=== PATIENT | male | born 1960 | race Caucasian/White ===

== ENCOUNTER 2017-03-15 16:47 | Inpatient (IN) | payer OTHER ==
[~2017-03-15] VITALS: Ht 182.9 cm; Wt 90.7 kg
[2017-03-15] MEDS ORDERED: MIRALAX 17 GM POWD.PACK PO PRN (17:30)
[2017-03-15] MEDS ORDERED: ONDANSETRON ODT 4 MG TAB.RAPDIS SL PRN (17:30)
[2017-03-15] MEDS ORDERED: MAGNESIUM HYDROXIDE 30 ML LIQUID UDC PO PRN (17:30)
[2017-03-15] MEDS ORDERED: ACETAMINOPHEN 325 MG TABLET PO PRN (17:30)
[2017-03-15] MEDS ORDERED: LORAZEPAM 1 MG TABLET PO PRN ×2 (17:30)
[2017-03-15] MEDS ORDERED: CLONIDINE HCL 0.1 MG TABLET PO PRN (17:30)
[2017-03-15] MEDS ORDERED: IBUPROFEN 600 MG TABLET PO PRN (17:30)
[2017-03-15] MEDS ORDERED: MAG HYDROX/AL HYDROX/SIMETH 30 ML LIQUID UDC PO PRN (17:30)
[2017-03-15] MEDS ORDERED: DICYCLOMINE HCL 20 MG TABLET PO PRN (17:30)
[2017-03-15] MEDS ORDERED: diphenhydrAMINE 50 MG CAPSULE PO PRN (17:30)
[2017-03-15] MEDS ORDERED: ONDANSETRON 4 MG/2 ML VIAL IM PRN (17:30)
[2017-03-15] MEDS ORDERED: LOPERAMIDE HCL 2 MG CAPSULE PO PRN ×2 (17:30)
[2017-03-15] MEDS ORDERED: LORAZEPAM 2 MG/1 ML VIAL IM PRN (17:30)
--- NOTE | 2017-03-15 17:30 | NUR ---
PRE ADMISSION Pt 56 y/o male in intake came from home. Pt alert and oriented to name, place, and timer. Perrla. Skin warm and moist to touch. Respirations labored, but even. Bilateral hand tremors noted. Pt anxious and not able to sit still. Pt appears disheveled. Pt with vomit episode x2. MD in intake assessing pt. Pt with c/o chest pain and labored breathing. EZ=611/89 T=98.0 R=20 P=120 O2=95% @ RA. Pt slightly resistive to giving information either me or MD. Educated pt on unit rules.
--- NOTE | 2017-03-15 17:32 | NUR ---
ADMISSION Pt 56 y/o male admitted for xanax/methamphetamine/ ghb dependence. Pt alert and oriented to name, place, and time. Perrla. Skin warm and moist to touch. even adn unlabored. Bilateral hand tremors noted. Pt anxious and not able to sit still. Pt with vomit episode x2 on unit. Zofran IM prn per MD order given and tolerated well. Pt also with c/o heartburn. Maalox po prn per MD order given and tolerated well. Oriented pt to unit and room. Pt seen by MD. Pt states has allergy to novacaine. Pt did not state if he had pmd. Ekg done = sinus tachy. Lab collected for troponin. substance hx - xanax po 1-2 bars daily x3 weeks. Last used 03/15/17 1/2 bar - methamphetamine IV 1-2 gm daily x 3weeks. Last used 03/15/17 1-2 gm - ghb po . Pt states uses occasionally but could not specify. medical hx - sz ( withdrawal related) , meningitis, depression
[2017-03-15] MEDS ORDERED: METOPROLOL TARTRATE 50 MG TABLET PO ONE (18:00)
[2017-03-15] MEDS: LORAZEPAM 1 MG TABLET PO SCH ×2 (18:04→20:39)
[2017-03-15] MEDS: ASPIRIN 325 MG TABLET PO SCH (18:04)
[2017-03-15 18:17] LABS: BASOPHILS % (AUTO) 0.4 % (0.0-2.0); EOSINOPHILS # (AUTO) 0.1 K/uL (0.0-0.7); EOSINOPHILS % (AUTO) 0.7 % (0.0-7.0); HEMOGLOBIN 15.8 G/DL (14.0-18.0); LYMPHOCYTES # (AUTO) 2.2 K/UL (0.8-4.8); LYMPHOCYTES % (AUTO) 18.6 % (20.5-51.5); MEAN CORPUSCULAR HGB CONC 34 g/dL (32.0-37.0); MEAN CORPUSCULAR VOLUME 86.4 FL (82.0-92.0); MONOCYTES # (AUTO) 1.4 K/UL (0.1-1.30); MONOCYTES % (AUTO) 12.1 % (0.0-11.0); NEUTROPHILS # (AUTO) 8.1 K/UL (1.8-8.9); NEUTROPHILS % (AUTO) 68.2 % (38.5-71.5); PLATELET COUNT (AUTO) 230 K/UL (150-450); RED BLOOD CELL COUNT(AUTO) 5.45 MIL/UL (4.7-6.1); WHITE BLOOD COUNT (AUTO) 11.8 K/UL (4.0-11.2)
[2017-03-15 18:40] LABS: ALANINE AMINOTRANSFERASE 34 U/L (16-63); ALKALINE PHOSPHATASE 83 U/L (50-136); ASPARTATE AMINOTRANSFERASE 21 U/L (15-37); BILIRUBIN,TOTAL 0.5 mg/dL (0.2-1.0); CARBON DIOXIDE 28 mmol/L (21-32); CHLORIDE 98 mmol/L (98-107); CREATININE 1.4 mg/dL (0.6-1.3); GLUCOSE 107 mg/dL (74-106); MAGNESIUM 1.5 mg/dL (1.8-2.4); POTASSIUM 3.2 mmol/L (3.5-5.1); TOTAL PROTEIN, SERUM 7.5 g/dL (6.4-8.2); UREA NITROGEN, BLOOD 15 mg/dL (7-18)
[2017-03-15 18:41] LABS: ETHANOL < 3 MG/DL (0-0)
--- NOTE | 2017-03-15 18:50 | NUR ---
LAB K=3.2, Mg1.5. made aware.
[2017-03-15 18:59] LABS: *AMPHETAMINE, URINE POSITIVE (NEGATIVE); *BARBITURATE, URINE NEGATIVE (NEGATIVE); *CANNABINOID, URINE NEGATIVE (NEGATIVE); *COCCAINE, URINE NEGATIVE (NEGATIVE); *OPIATE, URINE NEGATIVE (NEGATIVE); *PHENCYCLIDINE SCREEN,URINE NEGATIVE (NEGATIVE)
[2017-03-15] MEDS ORDERED: MAGNESIUM OXIDE 400 MG TABLET PO ONE (19:00)
[2017-03-15] MEDS ORDERED: LORAZEPAM 2 MG/1 ML VIAL IM ONE (19:00)
[2017-03-15] MEDS ORDERED: POTASSIUM CHLORIDE 10 MEQ CAPSULE.SA PO ONE (19:00)
--- NOTE | 2017-03-15 19:00 | NUR ---
LAB troponin=0.017 results received.
--- NOTE | 2017-03-15 19:30 | NUR ---
Start of Shift Pt is a 56 year old male admitted for Benzo/meth/GHB dependence, placed on Ativan taper. Pt reports using Xanax PO 1-2 bars x3 weeks, meth iv 1-2 gm x3 weeks and GHB PO occasionally x2. PMH: Meningitis, depression and Seizure x1. Pt reports allergies to procaine, kosher/no pork diet, fall/seizure precautions and full code. At time of assessment, pt is in room, sitting in bed with [employer] present at beside. Pt appears restless, is fidgeting, unable to sit still. Pt is hallucinating. Pt reports, I see my next to the trash can. O2 available via NC. Medications due, Sitter at bedside for safety, safety measures in place, call light within reach, side rails up x2 bed locked and in low position. Will continue to monitor.
--- NOTE | 2017-03-15 19:31 | NUR ---
Pt appears restless, is fidgeting, unable to sit still. Pt is hallucinating. Pt reports, I see my next to the trash can. GABRIEL Figueroa MD Aware. Ativan 2mg/1ml inj x1 administered. Mag-Ox 800mg x1 and Micro-K 30mg x1 supplemented as well. Sitter at bedside for safety, safety measures in place, call light within reach, side rails up x2 bed locked and in low position. Will continue to monitor.
[2017-03-15 20:00] VITALS: BP 95/64
--- NOTE | 2017-03-15 20:00 | NUR ---
Upon reassessment, CIWA 15, pt continues with episodes of hallucinations. Pt states, "You appear crooked, I can see that you have big ears", you're an elephant hung. aware, Scheduled Ativan 2mg administered. Sitter at bedside for safety, safety measures in place, call light within reach, side rails up x2 bed locked and in low position. Will continue to monitor.
[2017-03-15 20:15] LABS: THYROID STIMULATING HORMONE 0.799 mIU/mL (0.358-3.740)
[2017-03-15] MEDS: IV NS 1000 ML 1,000 ML IV PRN (21:01)
--- NOTE | 2017-03-15 21:05 | NUR ---
IV 22 gauge started on left forearm, intact patent, flushing well, no s/s of redness or swelling. IV NS 1000ml at 125mls/hr. Sitter at bedside for safety, safety measures in place, call light within reach, side rails up x2 bed locked and in low position. Will continue to monitor.
--- NOTE | 2017-03-15 22:00 | NUR ---
Upon reassessment, pt is in bed, sleeping respirations even/unlabored. IV NS running 1000ml at 125mls/hr. Sitter at bedside for safety, safety measures in place, call light within reach, side rails up x2 bed locked and in low position. Will continue to monitor.
[2017-03-16] VITALS: BP 94/65
--- NOTE | 2017-03-16 | NUR ---
CIWA deferred due to pt sleeping, to assess while pt is awake as ordered. BP 97/65, pulse 67, resp 16, SpO2 95% on O2 2 liters via NC, temp 98, no pain Sitter at bed, Safety measures in place, will continue to monitor.
[2017-03-16 04:00] VITALS: BP 94/67
--- NOTE | 2017-03-16 04:00 | NUR ---
CIWA deferred due to pt sleeping, to assess while pt is awake as ordered. BP 94/67, pulse 65, resp 17, SpO2 96% on room air, temp 97.8, no pain Sitter at bed, Safety measures in place, will continue to monitor.
[2017-03-16] MEDS: IV NS 1000 ML 1,000 ML IV PRN (05:32)
--- NOTE | 2017-03-16 05:32 | NUR ---
New bag started: IV NS 1000ml at 125mls/hr IV 22 gauge on left forearm, intact patent, flushing well, no s/s of redness or swelling. Sitter at bedside for safety, safety measures in place, call light within reach, side rails up x2 bed locked and in low position. Will continue to monitor.
--- NOTE | 2017-03-16 07:00 | NUR ---
End of Shift Pt is a 56 year old male admitted for Benzo/meth/GHB dependence, placed on Ativan taper. Pt reports using Xanax PO 1-2 bars x3 weeks, meth iv 1-2 gm x3 weeks and GHB PO occasionally x2. PMH: Meningitis, depression and Seizure x1. Pt reports allergies to procaine, kosher/no pork diet, fall/seizure precautions and full code. During shift, pt presented with visual hallucinations, at 193, CIWA 21, pt reported "I see my next to the trash can". MD made Aware. Ativan 2mg/1ml x1 administered. At 1999, Pt continued with hallucinations, stated, "You appear crooked, I can see that you have big ears, you're an elephant hung". MD aware, Scheduled Ativan 2mg administered. IV 22 gauge started on left forearm, intact patent, flushing well, no s/s of redness or swelling. IV NS 1000ml at 125mls/hr. Mag-Ox 800mg x1 and Micro-K 30mg x1 supplemented as well. Latest CIWA 15. Pt slept for 9 hours, intake of 200 ml PO, voids x1 and stool x0. Sitter at bedside for safety/hallucinations, safety measures in place, call light within reach, side rails up x2 bed locked and in low position. Endorsed to day shift nurse.
--- NOTE | 2017-03-16 07:45 | NUR ---
START OF SHIFT Rcvd endorsement from ongoing nurse, client is in room, he is a/o x to name, place and situation, he presents with anxious mood, flat affect, peripheral IV L forearm 22G intact, NS 125mL/hr tolerating well. Client is on a 1:1 sitter due to hallucination last night. He reports abdominal cramps, restless legs, and fatigue. He denies any N/V/D. He denies any SI/HI. Encourage client to attend to group therapy for skills to maintain sober. Encourage client to increase PO fluid intake as tolerated to facilitate detox. Client is a 56 y/o male, admitted to [facility] for withdrawal from alprazolam and methamphetamine He is on 5 day Ativan taper, tolerating well. Last CIWA 15 Ativan 1mg IM administered noted effective.Client slept 4 hrs. Client reports hx of withdrawal-induced seizures, Client reports allergy to procaine, he is full code, Kosher (No pork) diet. Side rails x 2 up/padded for seizure precautions. Call light within reach.
[2017-03-16 08:00] VITALS: BP_SYST 102
[2017-03-16] MEDS ORDERED: LORAZEPAM 1 MG TABLET PO SCH (09:00)
[2017-03-16] MEDS ORDERED: TUBERCULIN,PURIF.PROT.DERIV. 5 TU/0.1 ML TEST ID ONE (09:00)
[2017-03-16] MEDS ORDERED: VENLAFAXINE XR 37.5 MG CAP.SR.24H PO SCH (09:30)
[2017-03-16] MEDS: ASPIRIN 325 MG TABLET PO SCH (09:34)
--- NOTE | 2017-03-16 10:32 | NUR ---
IV DISCONTINUED Pt verbalizes his request to leave AMA. Dr. Baca explains risks involved, pt remains non-compliant. IV d/c, no s/s of redness or infiltration noted.
--- NOTE | 2017-03-16 10:40 | NUR ---
AMA: pt stated the he was not ready and wanted to use. Dr. camacho educated about the risks and consequences of leaving AMA, pt verbalized understanding but still requested to leave. multiple staff members spoke with pt without any success. VS are WNL, pt denies any suicidal/homicidal ideations, skin intact. Pt was given a list of community resources in case he is in need of help. all belongings returned to pt. pt left the unit at [id number]
[2017-03-17] MEDS ORDERED: LORAZEPAM 1 MG TABLET PO SCH (09:00)
[2017-03-17 10:07] LABS: HEPATITIS B SURFACE AG Negative (Negative)
[2017-03-18] MEDS ORDERED: LORAZEPAM 1 MG TABLET PO SCH (09:00)
[2017-03-19] MEDS ORDERED: LORAZEPAM 1 MG TABLET PO SCH (09:00)
== END 2017-03-16 10:40 | disposition left against medical advice (07) | DRG 894 ==
LOC: SRC 16:47
PROVIDERS: ADMIT Internal Medicine; ATTEND Internal Medicine
PROC: HZ2ZZZZ Detoxification Services for Substance Abuse Treatment (ICD-10-PCS; principal; 2017-03-15)
DX: F13.232 Sedative, hypnotic or anxiolytic dependence with withdrawal with perceptual disturbance (principal); N17.9 Acute kidney failure, unspecified; E83.42 Hypomagnesemia; F15.221 Other stimulant dependence with intoxication delirium; F17.210 Nicotine dependence, cigarettes, uncomplicated; Z91.89 Other specified personal risk factors, not elsewhere classified; F60.2 Antisocial personality disorder; F31.9 Bipolar disorder, unspecified; E87.6 Hypokalemia; R26.81 Unsteadiness on feet; R07.9 Chest pain, unspecified
CPT/HCPCS: 36415; 70030-TC; 71010; 80307; 80324; 83735; 84443; 85025; 86592; 86705; 86803; 87340; 87806; 93005; A4663; G0480; J2060; J2405; J7030